=== PATIENT | female | born 1950 | race Caucasian/White ===

== ENCOUNTER 2018-10-07 00:50 | Emergency (ER) | payer OTHER, MEDICAID ==
[~2018-10-07] VITALS: Ht 160 cm; Wt 68.0 kg
[~2018-10-07 00:50] MED LIST: ASPI-1718 PO; ATOR20TA PO; CARB1TAB37 PO; CARB1TAB8 PO; FAMO-90 PO; FLO.1 PO; LEVO0.0523 PO; RASA1TAB PO
[2018-10-07 00:53] VITALS: BP 164/97
--- NOTE | 2018-10-07 00:58 | NUR ---
PATIENT PRESENTS TO ED WITH [facility] FOR GT REPLACEMENT. DENIES N/V/D; SKIN IS PINK/WARM/DRY; AAOX3, PT LUNGS CLEAR BL; HR EVEN AND REGULAR; PT DENIES ANY FEVER, CP, SOB, OR COUGH AT THIS TIME; PATIENT STATES PAIN OF 0/10 AT THIS TIME; VSS; PATIENT POSITIONED FOR COMFORT; HOB ELEVATED; BEDRAILS UP X2; BED DOWN. ER MADE AWARE OF PT STATUS. Addendum: 10/07/18 at 0238 by KIKEU PATIENT PRESENTS TO ED FOR ANXIETY ATTACK. DENIES N/V/D; SKIN IS PINK/WARM/DRY; AAOX4 .; LUNGS CLEAR BL; HR EVEN AND REGULAR; PT DENIES ANY FEVER, CP, SOB, OR COUGH AT THIS TIME; PATIENT STATES PAIN OF 0/10 AT THIS TIME; VSS; PATIENT POSITIONED FOR COMFORT; HOB ELEVATED; BEDRAILS UP X2; BED DOWN. ER MADE AWARE OF PT STATUS.
[2018-10-07] MEDS ORDERED: LORazepam 2 MG/ML VIAL IM ONE (01:20)
[2018-10-07 02:33] VITALS: BP 123/70
--- NOTE | 2018-10-07 02:34 | NUR ---
Patient discharged with v/s stable. Written and verbal after care instructions given and explained. Patient verbalized understanding. Wheel Chair Assisted with by caregiver. All questions addressed prior to discharge. Advised to follow up with PMD.
== END 2018-10-07 02:33 | disposition home or self-care (01) ==
LOC: MED 00:50
DX: F41.9 Anxiety disorder, unspecified (principal); I95.9 Hypotension, unspecified; Z88.0 Allergy status to penicillin; Z79.82 Long term (current) use of aspirin; Z79.899 Other long term (current) drug therapy; Z86.39 Personal history of other endocrine, nutritional and metabolic disease
CPT/HCPCS: 96372; 99284; J2060

== ENCOUNTER 2020-09-24 06:10 | Emergency (ER) | payer OTHER, MEDICAID ==
[~2020-09-24] VITALS: Ht 144.8 cm; Wt 58.7 kg
[~2020-09-24 06:10] MED LIST changes: -ASPI-1718 PO; +ASPI-1822 PO
--- NOTE | 2020-09-24 06:20 | NUR ---
Dr. Thornton examining patient.
[2020-09-24] MEDS ORDERED: LORazepam 1 MG TAB PO ONE (06:25)
[2020-09-24 06:40] VITALS: BP 153/89
[2020-09-24] MEDS ORDERED: LEVOTHYROXINE 0.088 MG TAB PO SCH (06:40)
[2020-09-24] MEDS ORDERED: AMANTADINE 100 MG CAP PO SCH (06:40)
[2020-09-24] MEDS ORDERED: CARBIDOPA/LEVODOPA 25/100 MG 1 TAB PO SCH (06:40)
--- NOTE | 2020-09-24 06:50 | NUR ---
EMERGENCY CONTACT: DAUGHTER ALDAIR BERUMEN [phone]. ROSE MARY [phone] SISTER IN [place].
--- NOTE | 2020-09-24 07:48 | NUR ---
JULITA BERUMEN [phone] DAUGHTER FOR [employer]
--- NOTE | 2020-09-24 08:06 | NUR ---
BROUGHT IN BY AMBULANCE WITH C/O ANXIETY ATTACK, SHE WANDERS ALL NIGHT. HX ; [place] STAGE [address], ANXIETY, DEPRSESSION, ARTHRITIS
[2020-09-24 08:20] LABS: BASOPHILS % (AUTO) 0.4 % (0.0-2.0); EOSINOPHILS % (AUTO) 0.3 % (0.0-4.0); HEMATOCRIT 43.9 % (36-48); HEMOGLOBIN 14.7 g/dL (12.0-16.0); LYMPHOCYTES # (AUTO) 0.9 K/uL (2.5-16.5); LYMPHOCYTES % (AUTO) 11.7 % (20.5-51.1); MEAN CORPUSCULAR HEMOGLOBIN 33 pg (27-31); MEAN CORPUSCULAR HGB CONC 34 g/dL (33-37); MEAN CORPUSCULAR VOLUME 96.6 fL (80-94); MONOCYTES # (AUTO) 0.5 K/uL (0.8-1.0); MONOCYTES % (AUTO) 5.8 % (1.7-9.3); NEUTROPHILS # (AUTO) 6.4 K/uL (1.8-7.7); NEUTROPHILS % (AUTO) 81.8 % (42.2-75.2); PLATELET COUNT (AUTO) 386 K/uL (140-450); RED BLOOD CELL COUNT(AUTO) 4.54 MIL/uL (4.20-5.40); RED CELL DISTRIBUTION WIDTH 13.5 % (11.6-13.7); WHITE BLOOD COUNT (AUTO) 7.9 K/uL (4.8-10.8)
[2020-09-24 08:31] LABS: ANION GAP 10.5 (8-16); CARBON DIOXIDE 27.7 mmol/L (21-32); CHLORIDE 96 mmol/L (98-107); CREATININE 0.7 mg/dL (0.6-1.3); GLUCOSE 133 mg/dL (74-106); POTASSIUM 4.2 mmol/L (3.5-5.1); SODIUM SERUM 130 mmol/L (136-145); UREA NITROGEN, BLOOD 12 mg/dL (7-18)
--- NOTE | 2020-09-24 08:53 | NUR ---
Called Daughter Ladi Khan to roll picker pt. . ETA 20 min.
[2020-09-24 10:07] VITALS: BP 153/89
--- NOTE | 2020-09-24 10:07 | NUR ---
Patient discharged with v/s stable. Written and verbal after care instructions given and explained. Patient verbalized understanding. Wheel Chair Assisted with to car with pt daughter. All questions addressed prior to discharge. Advised to follow up with PMD.
== END 2020-09-24 10:07 | disposition home or self-care (01) ==
LOC: MED 06:10
DX: F41.9 Anxiety disorder, unspecified (principal); I10 Essential (primary) hypertension; E03.9 Hypothyroidism, unspecified; Z88.0 Allergy status to penicillin; Z79.899 Other long term (current) drug therapy; Z79.82 Long term (current) use of aspirin
CPT/HCPCS: 36415; 80048; 81002; 85025; 99284